=== PATIENT | female | born 1980 | race African-American/Black ===

== ENCOUNTER 2017-11-17 23:15 | Inpatient (IN) ==
[2017-11-18] MEDS ORDERED: MORPHINE 4 MG/1 ML VIAL IV STA ×2 (00:22→02:28)
[2017-11-18] MEDS ORDERED: ONDANSETRON 4 MG/2 ML VIAL IV STA ×2 (00:22→02:28)
[2017-11-18] MEDS ORDERED: hydrALAZINE 20 MG/1 ML VIAL IV STA (00:51)
[2017-11-18 01:21] LABS: Basophils # 0.1 10*3/uL (0.0-0.2); Basophils % 0.2 % (0.0-0.8); Hematocrit 29.7 VOL% (35.7-47.0); Hemoglobin 9.5 GM/DL (12.0-16.0); Immature Granulocytes % 2.8 %; Immature Granulocytes Absolute 1.49 #; Lymphocytes # 3.7 10*3/uL (1.4-4.0); Mean Corpuscular Hemoglobin 29 PG (27-34); Mean Corpuscular Volume 91.7 FL (87-102); Mean Platelet Volume 10.8 FL (9.6-12.0); Monocytes # 3.8 10*3/uL (0.11-0.8); Monocytes % 7.1 % (1.7-12.7); Neutrophils # 44.1 10*3/uL (1.4-7.4); Neutrophils % 82.9 % (38.7-73.9); Platelet Count 334 T/CUMM (130-400); Red Blood Count 3.24 MC/CUMM (3.8-5.5); Red Cell Distribution Width 16.3 % (9.3-17.3)
[2017-11-18 01:24] LABS: White Blood Count 53.2 T/CUMM (4-12)
[2017-11-18 01:35] LABS: Apearance,Urine Slightly Hazy (Clear); Bilirubin,Urine Negative (Negative); Blood, Urine Negative (Negative); Glucose,Urine (UA) Negative (Negative); Granular Casts,Urine 1 /LPF (0-1); Ketones,Urine Negative (Negative); Mucus,Urine Occasional /LPF (Occasional); Nitrite,Urine Negative (Negative); Protein,Urine >=500 MG/DL; RBC,Urine 1 /HPF (0-4); Squamous Epithelial Cell,Urine Occasional /HPF (0-10); Urine Color Yellow (Yellow); Urine Specific Gravity 1.012 (1.001-1.035); Urine Urobilinogen < 2.0 EU/DL (0.2-1.0); WBC,Urine 3 /HPF (0-6)
[2017-11-18 01:42] LABS: Albumin 2.2 G/DL (3.4-5.0); Bilirubin,Total 0.4 MG/DL (0.2-1.0); Calcium 8.1 MG/DL (8.5-10.1); Osmolality,Calculated 278.4 MOS/KG (273-304); Potassium 3.7 MMOL/L (3.5-5.1); Total Protein 7.5 G/DL (6.4-8.3)
[2017-11-18 03:19] LABS: Anisocytosis 1+; Band Neutrophils 7 % (0-10); Hypochromasia 2+; Lymphocytes 5 % (20-55); Macrocytosis 1+; Metamyelocytes 1 %; Platelet Estimate Normal; Polychromasia Few; Segmented Neutrophils 81 % (50-85); Total Cells Counted 100
[2017-11-18] MEDS ORDERED: SODIUM CHLORIDE 0.9% 500 ML IV STA (03:33)
[2017-11-18] MEDS ORDERED: ACETAMINOPHEN 325 MG TABLET PO PRN (05:08)
[2017-11-18] MEDS ORDERED: hydrALAZINE 20 MG/1 ML VIAL IV PRN (05:13)
[2017-11-18] MEDS ORDERED: SODIUM CHLOR 0.9% KCL 20 MEQ 20 MEQ/1,000 ML BAG IV SCH (05:30)
[2017-11-18] MEDS: SODIUM BICARB INJ 75 MEQ in SODIUM CHLORIDE 0.45% 1,000 ML IV SCH ×2 (06:17→18:13)
[2017-11-18] MEDS: VANCOMYCIN 50 MG/ML 60 ML/BOTTLE PO SCH ×3 (06:21→18:13)
[2017-11-18] MEDS: ONDANSETRON 4 MG/2 ML VIAL IV PRN ×2 (08:49→20:03)
[2017-11-18] MEDS: amLODIPine 10 MG TABLET PO SCH (08:49)
[2017-11-18] MEDS: MORPHINE 4 MG/1 ML VIAL IV PRN ×2 (08:49→21:08)
[2017-11-18] MEDS: FOLIC ACID 1 MG TABLET PO SCH (08:49)
[2017-11-18] MEDS: METOPROLOL TARTRATE 50 MG TABLET PO SCH ×2 (08:59→20:52)
[2017-11-18] MEDS: cloNIDine 0.1 MG TABLET PO SCH (20:52)
[2017-11-19] MEDS: VANCOMYCIN 50 MG/ML 60 ML/BOTTLE PO SCH ×4 (00:02→18:07)
[2017-11-19] MEDS: MORPHINE 4 MG/1 ML VIAL IV PRN ×4 (02:57→21:23)
[2017-11-19] MEDS: SODIUM BICARB INJ 75 MEQ in SODIUM CHLORIDE 0.45% 1,000 ML IV SCH ×2 (02:57→15:37)
[2017-11-19 05:09] LABS: Basophils # 0.1 10*3/uL (0.0-0.2); Basophils % 0.2 % (0.0-0.8); Eosinophils # 0.2 10*3/uL (0.0-0.87); Eosinophils % 0.5 % (0.00-10.9); Hematocrit 25.3 VOL% (35.7-47.0); Hemoglobin 8.1 GM/DL (12.0-16.0); Immature Granulocytes % 2.4 %; Immature Granulocytes Absolute 0.97 #; Lymphocytes # 4.5 10*3/uL (1.4-4.0); Lymphocytes % 11.1 % (21.3-54.2); Mean Corpuscular Hemoglobin 28 PG (27-34); Mean Corpuscular Volume 88.5 FL (87-102); Monocytes # 2.1 10*3/uL (0.11-0.8); Monocytes % 5.3 % (1.7-12.7); Neutrophils # 32.3 10*3/uL (1.4-7.4); Neutrophils % 80.5 % (38.7-73.9); Platelet Count 297 T/CUMM (130-400); Red Blood Count 2.86 MC/CUMM (3.8-5.5); Red Cell Distribution Width 16.2 % (9.3-17.3)
[2017-11-19 05:14] LABS: White Blood Count 40.2 T/CUMM (4-12)
[2017-11-19 05:43] LABS: Hypochromasia 1+; Lymphocytes 7 % (20-55); Platelet Estimate Adequate; Segmented Neutrophils 91 % (50-85); Total Cells Counted 100
[2017-11-19 05:46] LABS: Albumin 1.8 G/DL (3.4-5.0); Bilirubin,Total 0.5 MG/DL (0.2-1.0); Calcium 7.3 MG/DL (8.5-10.1); Osmolality,Calculated 284.8 MOS/KG (273-304); Potassium 3.2 MMOL/L (3.5-5.1); Total Protein 5.9 G/DL (6.4-8.3)
[2017-11-19] MEDS: amLODIPine 10 MG TABLET PO SCH (09:37)
[2017-11-19] MEDS: FOLIC ACID 1 MG TABLET PO SCH (09:37)
[2017-11-19] MEDS: METOPROLOL TARTRATE 50 MG TABLET PO SCH ×2 (09:37→20:29)
[2017-11-19] MEDS: cloNIDine 0.1 MG TABLET PO SCH ×2 (09:37→20:29)
[2017-11-19] MEDS: ONDANSETRON 4 MG/2 ML VIAL IV PRN ×3 (09:44→19:10)
[2017-11-20] MEDS: VANCOMYCIN 50 MG/ML 60 ML/BOTTLE PO SCH ×4 (00:23→17:25)
[2017-11-20] MEDS: SODIUM BICARB INJ 75 MEQ in SODIUM CHLORIDE 0.45% 1,000 ML IV SCH ×2 (00:58→12:39)
[2017-11-20] MEDS: MORPHINE 4 MG/1 ML VIAL IV PRN ×4 (03:18→21:11)
[2017-11-20 05:10] LABS: Basophils # 0.1 10*3/uL (0.0-0.2); Basophils % 0.2 % (0.0-0.8); Eosinophils # 0.3 10*3/uL (0.0-0.87); Eosinophils % 0.9 % (0.00-10.9); Hematocrit 26.9 VOL% (35.7-47.0); Hemoglobin 8.4 GM/DL (12.0-16.0); Immature Granulocytes % 1.1 %; Immature Granulocytes Absolute 0.33 #; Lymphocytes # 4.7 10*3/uL (1.4-4.0); Lymphocytes % 16.1 % (21.3-54.2); Mean Corpuscular HGB Conc 31.2 GM/DL (32-36); Mean Corpuscular Hemoglobin 28 PG (27-34); Monocytes # 1.8 10*3/uL (0.11-0.8); Monocytes % 6.2 % (1.7-12.7); Neutrophils # 22.2 10*3/uL (1.4-7.4); Neutrophils % 75.5 % (38.7-73.9); Platelet Count 312 T/CUMM (130-400); Red Blood Count 2.99 MC/CUMM (3.8-5.5); Red Cell Distribution Width 16.3 % (9.3-17.3); White Blood Count 29.4 T/CUMM (4-12)
[2017-11-20 05:31] LABS: Calcium 6.8 MG/DL (8.5-10.1); Osmolality,Calculated 284.8 MOS/KG (273-304); Potassium 3.1 MMOL/L (3.5-5.1)
[2017-11-20 05:42] LABS: Band Neutrophils 1 % (0-10); Hypochromasia 1+; Lymphocytes 15 % (20-55); Platelet Estimate Adequate; Segmented Neutrophils 80 % (50-85); Total Cells Counted 100
[2017-11-20 05:43] LABS: Macrocytosis Slight
[2017-11-20] MEDS: ONDANSETRON 4 MG/2 ML VIAL IV PRN ×4 (06:03→21:12)
[2017-11-20] MEDS ORDERED: MAGNESIUM SULF RIDER 4 GM in PREMIX 1 EACH IV PRN (08:42)
[2017-11-20] MEDS: FOLIC ACID 1 MG TABLET PO SCH (09:39)
[2017-11-20] MEDS: METOPROLOL TARTRATE 50 MG TABLET PO SCH ×2 (09:39→21:09)
[2017-11-20] MEDS: cloNIDine 0.1 MG TABLET PO SCH ×2 (09:39→21:10)
[2017-11-20] MEDS: amLODIPine 10 MG TABLET PO SCH (09:40)
[2017-11-20] MEDS: POTASSIUM CHLORIDE 20 MEQ TABLET PO PRN ×4 (12:57→21:09)
[2017-11-20] MEDS: MAGNESIUM SULF RIDER 2 GM in PREMIX 1 EACH IV PRN ×2 (14:31→16:29)
[2017-11-21] MEDS: VANCOMYCIN 50 MG/ML 60 ML/BOTTLE PO SCH ×3 (01:02→12:35)
[2017-11-21] MEDS: SODIUM BICARB INJ 75 MEQ in SODIUM CHLORIDE 0.45% 1,000 ML IV SCH ×2 (02:42→14:27)
[2017-11-21] MEDS: MORPHINE 4 MG/1 ML VIAL IV PRN ×2 (04:39→10:00)
[2017-11-21] MEDS: ONDANSETRON 4 MG/2 ML VIAL IV PRN ×2 (04:40→10:06)
[2017-11-21 04:50] LABS: Basophils # 0.1 10*3/uL (0.0-0.2); Basophils % 0.3 % (0.0-0.8); Eosinophils # 0.3 10*3/uL (0.0-0.87); Eosinophils % 1.6 % (0.00-10.9); Hematocrit 26.6 VOL% (35.7-47.0); Hemoglobin 8.4 GM/DL (12.0-16.0); Immature Granulocytes % 0.7 %; Immature Granulocytes Absolute 0.15 #; Lymphocytes # 4.1 10*3/uL (1.4-4.0); Lymphocytes % 19.9 % (21.3-54.2); Mean Corpuscular HGB Conc 31.6 GM/DL (32-36); Mean Corpuscular Hemoglobin 28 PG (27-34); Mean Corpuscular Volume 89.3 FL (87-102); Monocytes # 1.6 10*3/uL (0.11-0.8); Monocytes % 7.5 % (1.7-12.7); Neutrophils # 14.5 10*3/uL (1.4-7.4); Platelet Count 322 T/CUMM (130-400); Red Blood Count 2.98 MC/CUMM (3.8-5.5); White Blood Count 20.7 T/CUMM (4-12)
[2017-11-21 05:16] LABS: Eosinophils 1 % (0-10); Hypochromasia 1+; Lymphocytes 17 % (20-55); Segmented Neutrophils 80 % (50-85); Total Cells Counted 100
[2017-11-21 05:17] LABS: Microcytosis 1+; Platelet Estimate Normal; Polychromasia Slight
[2017-11-21] MEDS: amLODIPine 10 MG TABLET PO SCH (09:59)
[2017-11-21] MEDS: FOLIC ACID 1 MG TABLET PO SCH (09:59)
[2017-11-21] MEDS: POTASSIUM CHLORIDE 20 MEQ TABLET PO PRN ×2 (09:59→12:33)
[2017-11-21] MEDS: METOPROLOL TARTRATE 50 MG TABLET PO SCH (09:59)
[2017-11-21] MEDS: cloNIDine 0.1 MG TABLET PO SCH (09:59)
[2017-11-21 12:03] VITALS: BP 107/71
== END 2017-11-21 15:45 | disposition home or self-care (01) | DRG 372 ==
LOC: N.ED 23:15 → SUATTDRO 11-18 05:08 → N.EDINP 11-18 05:08 → N.2E 11-18 05:32
PROVIDERS: ADMIT Internal Medicine; ATTEND Internal Medicine

== ENCOUNTER 2018-01-18 12:01 | Inpatient (IN) ==
[2018-01-18 13:07] LABS: Basophils % 0.2 % (0.0-0.8); Eosinophils # 0.2 10*3/uL (0.0-0.87); Hematocrit 28.1 VOL% (35.7-47.0); Hemoglobin 8.5 GM/DL (12.0-16.0); Immature Granulocytes % 0.5 %; Lymphocytes # 3.6 10*3/uL (1.4-4.0); Lymphocytes % 16.7 % (21.3-54.2); Mean Corpuscular HGB Conc 30.2 GM/DL (32-36); Mean Corpuscular Hemoglobin 28 PG (27-34); Mean Corpuscular Volume 92.4 FL (87-102); Mean Platelet Volume 9.8 FL (9.6-12.0); Monocytes # 1.4 10*3/uL (0.11-0.8); Monocytes % 6.3 % (1.7-12.7); Neutrophils # 16.3 10*3/uL (1.4-7.4); Neutrophils % 75.3 % (38.7-73.9); Platelet Count 356 T/CUMM (130-400); Red Blood Count 3.04 MC/CUMM (3.8-5.5); Red Cell Distribution Width 16.2 % (9.3-17.3); White Blood Count 21.6 T/CUMM (4-12)
[2018-01-18 13:31] LABS: Alanine Aminotransferase < 9 U/L (13-56); Albumin 2.6 G/DL (3.4-5.0); Alkaline Phosphatase 103 U/L (45-117); Aspartate Amino Transferase 15 U/L (0-37); Bilirubin,Total < 0.39 MG/DL (0.2-1.0); Blood Urea Nitrogen 7 MG/DL (7-18); Calcium 8.9 MG/DL (8.5-10.1); Glucose 89 MG/DL (74-106); Osmolality,Calculated 277.3 MOS/KG (273-304); Potassium 4.3 MMOL/L (3.5-5.1); Sodium 141 MMOL/L (136-145); Total Protein 7.4 G/DL (6.4-8.3)
[2018-01-18] MEDS ORDERED: SODIUM CHLORIDE 0.9% 1,000 ML IV STA (15:03)
[2018-01-18] MEDS ORDERED: PROMETHAZINE INJ 12.5 MG in SODIUM CHLORIDE 0.9% 50 ML IV STA (15:03)
[2018-01-18] MEDS ORDERED: PROMETHAZINE 25 MG/1 ML VIAL ONE (15:07)
[2018-01-18 15:16] LABS: Band Neutrophils 1 % (0-10); Eosinophils 1 % (0-10); Lymphocytes 15 % (20-55); Platelet Estimate Increased; Segmented Neutrophils 78 % (50-85); Total Cells Counted 100
[2018-01-18 15:19] LABS: Hypochromasia Slight; Macrocytosis Slight
[2018-01-18] MEDS ORDERED: ACETAMINOPHEN 325 MG TABLET PO PRN (16:13)
[2018-01-18 16:45] LABS: Apearance,Urine Slightly Hazy (Clear); Bacteria,Urine Occasional /HPF (Few); Bilirubin,Urine Negative (Negative); Blood, Urine Small mg/dL (Negative); Glucose,Urine (UA) Negative (Negative); Ketones,Urine Negative (Negative); Mucus,Urine Occasional /LPF (Occasional); Nitrite,Urine Negative (Negative); Protein,Urine 100 MG/DL; RBC,Urine 1 /HPF (0-4); Squamous Epithelial Cell,Urine Occasional /HPF (0-10); Urine Color Straw (Yellow); Urine Specific Gravity 1.009 (1.001-1.035); Urine Urobilinogen < 2.0 EU/DL (0.2-1.0); WBC,Urine 2 /HPF (0-6)
[2018-01-18] MEDS ORDERED: VANCOMYCIN 50 MG/ML 60 ML/BOTTLE PO SCH (18:30)
[2018-01-18] MEDS: SODIUM CHLORIDE 0.9% 1,000 ML IV SCH (19:03)
[2018-01-18] MEDS: ONDANSETRON 4 MG/2 ML VIAL IV PRN (19:48)
[2018-01-18] MEDS: cloNIDine 0.1 MG TABLET PO SCH (20:37)
[2018-01-18] MEDS: METOPROLOL TARTRATE 50 MG TABLET PO SCH (20:37)
[2018-01-18] MEDS: PROMETHAZINE 25 MG/1 ML VIAL IM PRN (21:35)
[2018-01-19] MEDS: PANTOPRAZOLE 40 MG VIAL IV SCH ×2 (00:01→09:52)
[2018-01-19] MEDS: SODIUM CHLORIDE 0.9% 1,000 ML IV SCH ×3 (02:30→23:57)
[2018-01-19 06:16] LABS: Basophils # 0.1 10*3/uL (0.0-0.2); Basophils % 0.2 % (0.0-0.8); Eosinophils # 0.2 10*3/uL (0.0-0.87); Eosinophils % 0.8 % (0.00-10.9); Hematocrit 24.2 VOL% (35.7-47.0); Hemoglobin 7.3 GM/DL (12.0-16.0); Immature Granulocytes % 0.5 %; Immature Granulocytes Absolute 0.12 #; Lymphocytes # 4.8 10*3/uL (1.4-4.0); Lymphocytes % 21.7 % (21.3-54.2); Mean Corpuscular HGB Conc 30.2 GM/DL (32-36); Mean Corpuscular Hemoglobin 28 PG (27-34); Mean Corpuscular Volume 91.3 FL (87-102); Mean Platelet Volume 10.5 FL (9.6-12.0); Monocytes # 1.7 10*3/uL (0.11-0.8); Monocytes % 7.6 % (1.7-12.7); Neutrophils # 15.4 10*3/uL (1.4-7.4); Neutrophils % 69.2 % (38.7-73.9); Platelet Count 317 T/CUMM (130-400); Red Blood Count 2.65 MC/CUMM (3.8-5.5); Red Cell Distribution Width 16.4 % (9.3-17.3); White Blood Count 22.2 T/CUMM (4-12)
[2018-01-19] MEDS: PROMETHAZINE 25 MG/1 ML VIAL IM PRN ×3 (06:24→20:42)
[2018-01-19 06:43] LABS: Band Neutrophils 6 % (0-10); Lymphocytes 21 % (20-55); Platelet Estimate Normal; Segmented Neutrophils 69 % (50-85); Total Cells Counted 100
[2018-01-19 06:44] LABS: Anisocytosis 1+
[2018-01-19 06:48] LABS: Alanine Aminotransferase < 9 U/L (13-56); Albumin 2.1 G/DL (3.4-5.0); Alkaline Phosphatase 108 U/L (45-117); Aspartate Amino Transferase 8 U/L (0-37); Blood Urea Nitrogen 7 MG/DL (7-18); Calcium 7.9 MG/DL (8.5-10.1); Glucose 74 MG/DL (74-106); Osmolality,Calculated 277.3 MOS/KG (273-304); Potassium 3.9 MMOL/L (3.5-5.1); Sodium 141 MMOL/L (136-145); Total Protein 6.6 G/DL (6.4-8.3)
[2018-01-19] MEDS ORDERED: MAGNESIUM SULF RIDER 2 GM in PREMIX 1 EACH IV ONE (07:12)
[2018-01-19] MEDS: METOPROLOL TARTRATE 50 MG TABLET PO SCH ×2 (09:52→20:41)
[2018-01-19] MEDS: LACTOBACILLUS ACIDOPHILUS/BULGARICUS CAPLET PO SCH (09:52)
[2018-01-19] MEDS: cloNIDine 0.1 MG TABLET PO SCH ×2 (09:52→20:41)
[2018-01-19 13:53] LABS: % Iron Saturation 18.1 % (18-50)
[2018-01-19] MEDS: VANCOMYCIN 50 MG/ML 60 ML/BOTTLE PO SCH ×3 (14:00→23:10)
[2018-01-20] MEDS: SODIUM CHLORIDE 0.9% 1,000 ML IV SCH ×3 (02:17→18:21)
[2018-01-20 05:11] LABS: Basophils # 0.1 10*3/uL (0.0-0.2); Basophils % 0.3 % (0.0-0.8); Eosinophils # 0.3 10*3/uL (0.0-0.87); Eosinophils % 1.8 % (0.00-10.9); Hematocrit 24.6 VOL% (35.7-47.0); Hemoglobin 7.2 GM/DL (12.0-16.0); Immature Granulocytes % 0.4 %; Immature Granulocytes Absolute 0.07 #; Lymphocytes # 4.7 10*3/uL (1.4-4.0); Lymphocytes % 29.7 % (21.3-54.2); Mean Corpuscular HGB Conc 29.3 GM/DL (32-36); Mean Corpuscular Hemoglobin 27 PG (27-34); Mean Corpuscular Volume 93.2 FL (87-102); Mean Platelet Volume 10.3 FL (9.6-12.0); Monocytes # 1.3 10*3/uL (0.11-0.8); Monocytes % 8.3 % (1.7-12.7); Neutrophils # 9.3 10*3/uL (1.4-7.4); Neutrophils % 59.5 % (38.7-73.9); Platelet Count 306 T/CUMM (130-400); Red Blood Count 2.64 MC/CUMM (3.8-5.5); Red Cell Distribution Width 16.3 % (9.3-17.3); White Blood Count 15.7 T/CUMM (4-12)
[2018-01-20 05:12] LABS: Basophils % 0.3 % (0.0-0.8); Eosinophils # 0.3 10*3/uL (0.0-0.87); Eosinophils % 1.7 % (0.00-10.9); Hematocrit 24.8 VOL% (35.7-47.0); Hemoglobin 7.1 GM/DL (12.0-16.0); Immature Granulocytes % 0.5 %; Immature Granulocytes Absolute 0.08 #; Lymphocytes # 4.8 10*3/uL (1.4-4.0); Lymphocytes % 30.4 % (21.3-54.2); Mean Corpuscular HGB Conc 28.6 GM/DL (32-36); Mean Corpuscular Hemoglobin 27 PG (27-34); Mean Corpuscular Volume 93.2 FL (87-102); Mean Platelet Volume 10.1 FL (9.6-12.0); Monocytes # 1.2 10*3/uL (0.11-0.8); Monocytes % 7.7 % (1.7-12.7); Neutrophils # 9.5 10*3/uL (1.4-7.4); Neutrophils % 59.4 % (38.7-73.9); Platelet Count 306 T/CUMM (130-400); Red Blood Count 2.66 MC/CUMM (3.8-5.5); Red Cell Distribution Width 16.3 % (9.3-17.3); White Blood Count 15.9 T/CUMM (4-12)
[2018-01-20 05:27] LABS: Alanine Aminotransferase < 9 U/L (13-56); Albumin 1.9 G/DL (3.4-5.0); Alkaline Phosphatase 78 U/L (45-117); Aspartate Amino Transferase 9 U/L (0-37); Bilirubin,Total < 0.39 MG/DL (0.2-1.0); Blood Urea Nitrogen 9 MG/DL (7-18); Calcium 7.7 MG/DL (8.5-10.1); Glucose 77 MG/DL (74-106); Potassium 4.4 MMOL/L (3.5-5.1); Sodium 143 MMOL/L (136-145); Total Protein 6.4 G/DL (6.4-8.3)
[2018-01-20] MEDS: VANCOMYCIN 50 MG/ML 60 ML/BOTTLE PO SCH ×4 (05:56→23:13)
[2018-01-20] MEDS: PROMETHAZINE 25 MG/1 ML VIAL IM PRN ×3 (06:02→20:29)
[2018-01-20 06:08] LABS: Band Neutrophils 1 % (0-10); Eosinophils 3 % (0-10); Lymphocytes 29 % (20-55); Platelet Estimate Normal; Segmented Neutrophils 61 % (50-85); Total Cells Counted 100
[2018-01-20] MEDS: FOLIC ACID 1 MG TABLET PO SCH (10:05)
[2018-01-20] MEDS: LACTOBACILLUS ACIDOPHILUS/BULGARICUS CAPLET PO SCH (10:05)
[2018-01-20] MEDS: PANTOPRAZOLE 40 MG VIAL IV SCH (10:06)
[2018-01-20] MEDS: METOPROLOL TARTRATE 50 MG TABLET PO SCH ×2 (10:06→20:28)
[2018-01-20] MEDS: cloNIDine 0.1 MG TABLET PO SCH ×2 (10:06→20:28)
[2018-01-21] MEDS: SODIUM CHLORIDE 0.9% 1,000 ML IV SCH ×3 (02:32→20:33)
[2018-01-21] MEDS: PROMETHAZINE 25 MG/1 ML VIAL IM PRN ×2 (05:08→13:16)
[2018-01-21] MEDS: VANCOMYCIN 50 MG/ML 60 ML/BOTTLE PO SCH ×2 (05:08→13:09)
[2018-01-21] MEDS ORDERED: SODIUM CHLORIDE 0.9% 1,000 ML IV PRN (07:38)
[2018-01-21 07:39] LABS: Basophils % 0.3 % (0.0-0.8); Eosinophils # 0.3 10*3/uL (0.0-0.87); Eosinophils % 2.2 % (0.00-10.9); Hematocrit 28.2 VOL% (35.7-47.0); Hemoglobin 8.4 GM/DL (12.0-16.0); Immature Granulocytes % 0.5 %; Immature Granulocytes Absolute 0.07 #; Lymphocytes # 4.5 10*3/uL (1.4-4.0); Lymphocytes % 29.2 % (21.3-54.2); Mean Corpuscular HGB Conc 29.8 GM/DL (32-36); Mean Corpuscular Hemoglobin 28 PG (27-34); Mean Corpuscular Volume 93.4 FL (87-102); Mean Platelet Volume 10.1 FL (9.6-12.0); Monocytes # 1.1 10*3/uL (0.11-0.8); Monocytes % 6.9 % (1.7-12.7); Neutrophils # 9.3 10*3/uL (1.4-7.4); Neutrophils % 60.9 % (38.7-73.9); Platelet Count 344 T/CUMM (130-400); Red Blood Count 3.02 MC/CUMM (3.8-5.5); Red Cell Distribution Width 16.1 % (9.3-17.3); White Blood Count 15.3 T/CUMM (4-12)
[2018-01-21 08:12] LABS: Alanine Aminotransferase < 9 U/L (13-56); Albumin 2.2 G/DL (3.4-5.0); Alkaline Phosphatase 95 U/L (45-117); Aspartate Amino Transferase 11 U/L (0-37); Bilirubin,Total < 0.39 MG/DL (0.2-1.0); Blood Urea Nitrogen 8 MG/DL (7-18); Calcium 8.3 MG/DL (8.5-10.1); Glucose 86 MG/DL (74-106); Potassium 4.1 MMOL/L (3.5-5.1); Sodium 143 MMOL/L (136-145); Total Protein 7.3 G/DL (6.4-8.3)
[2018-01-21 09:07] LABS: Microcytosis 1+; Ovalocytes Slight
[2018-01-21 09:08] LABS: Hypochromasia 1+
[2018-01-21] MEDS: FOLIC ACID 1 MG TABLET PO SCH (09:09)
[2018-01-21] MEDS: cloNIDine 0.1 MG TABLET PO SCH ×2 (09:09→20:33)
[2018-01-21] MEDS: LACTOBACILLUS ACIDOPHILUS/BULGARICUS CAPLET PO SCH (09:09)
[2018-01-21] MEDS: METOPROLOL TARTRATE 50 MG TABLET PO SCH ×2 (09:09→20:32)
[2018-01-21] MEDS: PANTOPRAZOLE 40 MG VIAL IV SCH (09:10)
[2018-01-21] MEDS: ONDANSETRON 4 MG/2 ML VIAL IV PRN (09:12)
[2018-01-21 09:50] LABS: Hemoglobin A1 (Alkaline) 97.8 % (96.5-98.5); Hemoglobin A2 (Alkaline) 2.2 % (1.5-3.5)
[2018-01-21] MEDS: HYOSCYAMINE 0.125 MG TABLET PO SCH (18:04)
[2018-01-21] MEDS ORDERED: PROMETHAZINE 25 MG/1 ML VIAL IM ONE (18:20)
[2018-01-22] MEDS: HYOSCYAMINE 0.125 MG TABLET PO SCH ×4 (00:14→20:34)
[2018-01-22] MEDS: ONDANSETRON 4 MG/2 ML VIAL IV PRN ×3 (02:22→16:46)
[2018-01-22] MEDS: SODIUM CHLORIDE 0.9% 1,000 ML IV SCH ×2 (04:29→12:34)
[2018-01-22 05:31] LABS: Basophils # 0.1 10*3/uL (0.0-0.2); Basophils % 0.3 % (0.0-0.8); Eosinophils # 0.3 10*3/uL (0.0-0.87); Eosinophils % 1.8 % (0.00-10.9); Hematocrit 25.4 VOL% (35.7-47.0); Hemoglobin 7.7 GM/DL (12.0-16.0); Immature Granulocytes % 0.5 %; Immature Granulocytes Absolute 0.08 #; Lymphocytes # 4.5 10*3/uL (1.4-4.0); Lymphocytes % 29.6 % (21.3-54.2); Mean Corpuscular HGB Conc 30.3 GM/DL (32-36); Mean Corpuscular Hemoglobin 27 PG (27-34); Mean Corpuscular Volume 90.4 FL (87-102); Mean Platelet Volume 10.5 FL (9.6-12.0); Monocytes # 1.2 10*3/uL (0.11-0.8); Monocytes % 7.9 % (1.7-12.7); Neutrophils # 9.2 10*3/uL (1.4-7.4); Neutrophils % 59.9 % (38.7-73.9); Platelet Count 321 T/CUMM (130-400); Red Blood Count 2.81 MC/CUMM (3.8-5.5); White Blood Count 15.3 T/CUMM (4-12)
[2018-01-22] MEDS: LACTOBACILLUS ACIDOPHILUS/BULGARICUS CAPLET PO SCH (09:38)
[2018-01-22] MEDS: METOPROLOL TARTRATE 50 MG TABLET PO SCH ×2 (09:38→20:34)
[2018-01-22] MEDS: FOLIC ACID 1 MG TABLET PO SCH (09:39)
[2018-01-22] MEDS: PANTOPRAZOLE 40 MG TABLET PO SCH (09:39)
[2018-01-22] MEDS: cloNIDine 0.1 MG TABLET PO SCH ×2 (09:39→20:34)
[2018-01-22] MEDS: PROMETHAZINE 25 MG/1 ML VIAL IM PRN ×2 (12:04→20:35)
[2018-01-22 17:51] LABS: Adenovirus F40/41 Negative (Negative); Astrovirus Negative (Negative); Cryptosporidium species Negative (Negative); Cyclospora cayetanensis Negative (Negative); Entamoeba histolytica Negative (Negative); Enteropathogenic E.coli (EPEC) Negative (Negative); Enterotoxigenic E. coli (ETEC) Negative (Negative); Norovirus GI/GII Negative (Negative); Plesiomonas shigelloides Negative (Negative); Salmonella species Negative (Negative); Sapovirus Negative (Negative); Shiga toxin producing E. coli Negative (Negative); Shigella/Enteroinvasive E.coli Negative (Negative); Specimen Source STOOL; Vibrio cholerae Negative (Negative); Yersinia enterocolitica Negative (Negative)
[2018-01-22] MEDS ORDERED: hydrALAZINE 20 MG/1 ML VIAL IV PRN (23:59)
[2018-01-23] MEDS ORDERED: ASPIRIN CHEW 81 MG TABLET PO STA (02:22)
[2018-01-23] MEDS ORDERED: MORPHINE 4 MG/1 ML VIAL IV STA (02:23)
[2018-01-23 02:24] LABS: Basophils % 0.2 % (0.0-0.8); Eosinophils # 0.3 10*3/uL (0.0-0.87); Eosinophils % 1.4 % (0.00-10.9); Hematocrit 27.9 VOL% (35.7-47.0); Hemoglobin 8.5 GM/DL (12.0-16.0); Immature Granulocytes % 0.6 %; Immature Granulocytes Absolute 0.11 #; Lymphocytes # 5.6 10*3/uL (1.4-4.0); Lymphocytes % 31.1 % (21.3-54.2); Mean Corpuscular HGB Conc 30.5 GM/DL (32-36); Mean Corpuscular Hemoglobin 28 PG (27-34); Mean Corpuscular Volume 90.9 FL (87-102); Mean Platelet Volume 9.9 FL (9.6-12.0); Monocytes % 5.4 % (1.7-12.7); Neutrophils % 61.3 % (38.7-73.9); Platelet Count 350 T/CUMM (130-400); Red Blood Count 3.07 MC/CUMM (3.8-5.5); Red Cell Distribution Width 16.2 % (9.3-17.3)
[2018-01-23] MEDS: HYOSCYAMINE 0.125 MG TABLET PO SCH ×4 (03:59→21:12)
[2018-01-23] MEDS ORDERED: hydrALAZINE 20 MG/1 ML VIAL IV ONE (10:00)
[2018-01-23] MEDS ORDERED: HYDROmorphone 2 MG/1 ML VIAL IV ONE (10:00)
[2018-01-23] MEDS: LACTOBACILLUS ACIDOPHILUS/BULGARICUS CAPLET PO SCH (10:26)
[2018-01-23] MEDS: METOPROLOL TARTRATE 50 MG TABLET PO SCH ×2 (10:26→21:12)
[2018-01-23] MEDS: PANTOPRAZOLE 40 MG TABLET PO SCH (10:27)
[2018-01-23] MEDS: cloNIDine 0.1 MG TABLET PO SCH ×2 (10:27→21:13)
[2018-01-23] MEDS: amLODIPine 10 MG TABLET PO SCH (10:27)
[2018-01-23] MEDS: FOLIC ACID 1 MG TABLET PO SCH (10:27)
[2018-01-23] MEDS: SODIUM CHLORIDE 0.9% 1,000 ML IV SCH (10:29)
[2018-01-23] MEDS: HYDROmorphone 2 MG/1 ML VIAL IV PRN ×2 (16:28→23:38)
[2018-01-23] MEDS ORDERED: MAGNESIUM CITRATE 300 ML BOTTLE PO ONE (19:00)
[2018-01-23] MEDS: ONDANSETRON 4 MG/2 ML VIAL IV PRN (23:38)
[2018-01-24] MEDS: HYOSCYAMINE 0.125 MG TABLET PO SCH ×2 (04:44→09:30)
[2018-01-24 06:15] LABS: Basophils % 0.3 % (0.0-0.8); Eosinophils # 0.2 10*3/uL (0.0-0.87); Eosinophils % 1.1 % (0.00-10.9); Hematocrit 25.2 VOL% (35.7-47.0); Hemoglobin 7.3 GM/DL (12.0-16.0); Immature Granulocytes % 0.5 %; Immature Granulocytes Absolute 0.07 #; Lymphocytes # 4.2 10*3/uL (1.4-4.0); Lymphocytes % 29.2 % (21.3-54.2); Mean Corpuscular Hemoglobin 27 PG (27-34); Mean Platelet Volume 10.4 FL (9.6-12.0); Monocytes # 1.1 10*3/uL (0.11-0.8); Monocytes % 7.6 % (1.7-12.7); Neutrophils # 8.8 10*3/uL (1.4-7.4); Neutrophils % 61.3 % (38.7-73.9); Platelet Count 316 T/CUMM (130-400); Red Blood Count 2.74 MC/CUMM (3.8-5.5); Red Cell Distribution Width 16.3 % (9.3-17.3); White Blood Count 14.4 T/CUMM (4-12)
[2018-01-24 06:42] LABS: Calcium 8.2 MG/DL (8.5-10.1); Osmolality,Calculated 279.1 MOS/KG (273-304); Potassium 4.3 MMOL/L (3.5-5.1)
[2018-01-24] MEDS ORDERED: LIDOCAINE 2% 5 ML VIAL ONE (07:24)
[2018-01-24] MEDS ORDERED: PROPOFOL 200 MG/20 ML VIAL IV ONE (07:24)
[2018-01-24] MEDS ORDERED: MAGNESIUM SULF RIDER 2 GM in PREMIX 1 EACH IV ONE (08:00)
[2018-01-24] MEDS: HYDROmorphone 2 MG/1 ML VIAL IV PRN ×2 (08:50→14:49)
[2018-01-24] MEDS: PANTOPRAZOLE 40 MG TABLET PO SCH (09:29)
[2018-01-24] MEDS: FOLIC ACID 1 MG TABLET PO SCH (09:30)
[2018-01-24] MEDS: LACTOBACILLUS ACIDOPHILUS/BULGARICUS CAPLET PO SCH (09:30)
[2018-01-24] MEDS: cloNIDine 0.1 MG TABLET PO SCH (09:30)
[2018-01-24] MEDS: amLODIPine 10 MG TABLET PO SCH (09:30)
[2018-01-24] MEDS: METOPROLOL TARTRATE 50 MG TABLET PO SCH (09:31)
[2018-01-24 11:23] VITALS: BP 139/99
== END 2018-01-24 15:22 | disposition home or self-care (01) | DRG 392 ==
LOC: N.ED 12:01 → N.EDINP 16:13 → SUATTDRO 16:13 → N.2E 18:29
PROVIDERS: ADMIT Hospitalist; ATTEND Internal Medicine